=== PATIENT | female | born 1970 | race Caucasian/White ===

== ENCOUNTER 2017-04-02 11:36 | Outpatient (CLI) | payer BC ==
--- NOTE | ~2017-04-02 | HEMODYNAMI ---
PATIENT:LUIS ANGEL DOBBINS MEDICAL RECORD: [id number] : 66 LOCATION:[facility] ADMISSION DATE: 04/02/17 Generatedon:04/02/201714:36 Patient name: LUIS ANGEL DOBBINS Patient #: [id number] SSN: DO B: 1970 Date of study: 04/02/2017 Page: Of Hemodynamic Procedure Report Patient Data Patient Demographics Procedure consent was obtained First Name: LUIS ANGEL Gender: Female Last Name: MU : 1970 Middle Initial: MELANIE Age: 46 year(s) Patient #: [id number] Race: Unknown Additional ID: [id number] Contact details [address]: [address] [place] [address] State: [place] City: [place] Zip code: [address] Past Medical History Allergies Allergen Reaction Date Comments Reported Other allergy 04/02/2017 Succinylonoline Admission Admission Data Admission Date: 04/02/2017 Admission Time: 11:36 Lab Results Lab Result Date: 04/02/2017 Lab Result Time: 0:00 Biochemistry Name Units Result Min Max BUN mg/dl 11 --(-*--)-- 7 18 Creatinine mg/dl 0.8 --(-*--)-- 0.6 1.3 CBC Name Units Result Min Max Hemoglobin g/dl 13.6 --(*---)-- 13.5 17.5 Procedure Procedure Types Cath Procedure Diagnostic Procedure [facility] w/Coronaries Miscellaneous Procedures Moderate Sedation up to 30 minutes Procedure Description Procedure Date Procedure Date: 04/02/2017 Procedure Start Time: 14:20 Procedure End Time: 14:36 Procedure Staff Name Function Dev Cheema MD Performing Physician Loretta Robledo RT Scrub Lisette Howard RN Nurse Lynette Dorantes RT Monitor Joshua Carlson RT Monitor Indication Angina Procedure Data Cath Procedure Fluoroscopy Diagnostic fluoroscopy Total fluoroscopy Time: 2.1 time: 2.1 min min Diagnostic fluoroscopy Total fluoroscopy dose: 315 dose: 315 mGy mGy Contrast Material Contrast Material Type Amount (ml) Isovue 300 58 Entry Location Entry Primary Successful Side Size Upsize Upsize Entry Closure Succes sful Closure Location (Fr) 1 (Fr) 2 (Fr) Remarks Device Remarks Femoral Right 5 Fr Exoseal artery Estimated blood loss: 5 ml Diagnostic catheters Device Type Used For End Catheter Placement Cordis 5Fr JL 4.0 Left Coronary Catheter (MP) Angiography Cordis 5Fr 3DRC Catheter Procedure (MP) Cordis 5Fr Pigtail Procedure Catheter (MP) Procedure Complications No complications Procedure Medications Medication Administration Route Dosage Oxygen NC 2 l/min Lidocaine 2% added to field 20 Heparin Flush Bag added to field 2 bags (1000units/500ml NS) 0.9% NaCl I.V. 100 ml/hr Versed I.V. 2 mg Fentanyl I.V. 100 mcg Versed I.V. 1 mg Fentanyl I.V. 50 mcg Versed I.V. 1 mg Fentanyl I.V. 50 mcg Versed I.V. 1 mg Fentanyl I.V. 50 mcg Hemodynamics Rest HGB: 13.6 (g/dl) Heart Rate: 77 (bpm) Pressure Samples Time Site Value (mmHg) Purpose Heart Use Rate(bpm) 14:30 LV 161/27,53 EDP 91 Gradients Valve Time Site Site Mean SEP/DFP Peak To Heart Use 1 2 (mmHg) (sec/min) Peak Rate (mmHg) (bpm) Aortic 14:31 LV AO 100 Snapshots Pre Cath Intra NCS Post Cath Vital Signs Time Heart Resp SPO2 NIBP (mmHg) Rhythm Pain Sedation Rate (ipm) (%) Status Level (bpm) 14:02:11 73 19 100 126/83(102) NSR 0 (11) 10(A) , No pain 14:06:16 79 22 100 128/75(100) NSR 0 (11) 10(A) , No pain 14:10:20 77 16 98 129/89(102) NSR 0 (11) 10(A) , No pain 14:14:28 77 19 97 129/74(89) NSR 0 (11) 10(A) , No pain 14:18:33 80 17 95 136/82(100) NSR 0 (11) 10(A) , No pain 14:22:39 89 17 96 106/84(104) NSR 0 (11) 10(A) , No pain 14:27:28 92 17 96 137/86(92) NSR 0 (11) 9(A) , No pain 14:31:36 93 18 97 117/87(106) NSR 0 (11) 10(A) , No pain 14:35:40 92 29 97 115/75(92) NSR 0 (11) 10(A) , No pain Medications Time Medication Route Dose Verified Delivered Reason Notes Effe ctiveness by by 14:08:23 Oxygen NC 2 Dev Buffie used for l/min Deni Howard RN procedure 14:08:29 Lidocaine 2% added 20ml Dev Dev for local to vial Deni Cheema MD anesthetic field 14:08:47 Heparin Flush added 2 Dev Dev used for Bag to bags Deni Cheema MD procedure (1000units/500ml field NS) 14:08:56 0.9% NaCl I.V. 100 Dev Buffie Per ml/hr Deni Howard RN physician 14:14:04 Versed I.V. 2 mg Dev Buffie for Deni Howard RN sedation 14:14:10 Fentanyl I.V. 100 Dev Buffie for mcg Deni Howard RN sedation 14:18:18 Versed I.V. 1 mg Dev Buffie for Deni Howard RN sedation 14:18:22 Fentanyl I.V. 50 Dev Buffie for mcg Deni Howard RN sedation 14:22:52 Versed I.V. 1 mg Dev Buffie for Deni Howard RN sedation 14:22:55 Fentanyl I.V. 50 Dev Buffie for abeba Howard RN sedation 14:29:56 Versed I.V. 1 mg Dev Buffie for Deni Howard RN sedation 14:30:00 Fentanyl I.V. 50 Dev Buffie for mcg Deni Howard RN sedation Procedure Log Time Note 13:40:39 Lisette Howard RN sent for patient. Start room use. 13:53:16 Diagnostic Cath Status : Elective 13:53:33 Indication : Angina 13:53:45 Time tracking: Regular hours 13:53:49 Plan of Care:Hemodynamics will remain stable., Cardiac rhythm will remain stable., Comfort level will be maintained., Respiratory function will remain adequate., Patient/ family verbilizes understanding of procedure., Procedure tolerated without complication., Recovers from procedure without complications.. 13:53:56 Patient received from Pre/Post Procedure Room to CCL 2 Alert and oriented. Tansferred to table in Supine position. 13:54:07 Warm blankets applied, and maicol hugger turned on for patient comfort. 13:54:07 Correct patient and procedure confirmed by team. 13:54:10 Signed procedure consent form obtained from patient. 13:54:11 ECG and BP/O2 sat monitors applied to patient. 14:01:07 Vital chart was started 14:01:08 Baseline sample Acquired. 14:01:17 Rhythm: sinus rhythm 14:01:18 Full Disclosure recording started 14:02:52 H&P Date Dictated: 03/31/2017 Within 30 days and on chart., H&P Addendum completed by physician on day of procedure. (MUST COMPLETE FOR ALL OUTPATIENTS). 14:02:54 Pre-procedure instructions explained to patient. 14:02:54 Pre-op teaching completed and patient verbalized understanding. 14:02:55 Family in waiting room. 14:02:56 Patient NPO since Midnight. 14:03:37 Patient allergic to Other allergySuccinylonoline 14:03:39 Is the patient allergic to Iodine/contrast media? No. 14:03:40 Was the patient premedicated? No 14:03:46 Is patient on blood thinner?No 14:03:51 Patient diabetic? No. 14:03:55 Previous problem with sedation/anesthesia? No ? 14:03:57 Snore? Yes 14:03:58 Sleep apnea? No 14:04:01 Deviated septum? No 14:04:02 Opens mouth fully? Yes 14:04:03 Sticks out tongue? Yes 14:04:05 Airway obstruction? No ? 14:04:08 Dentures? No ? 14:04:13 Pre procedure: right dorsailis pedis pulse 1+ Palpable, but thready & weak; easily obliterated 14:04:16 Pre procedure: left dorsailis pedis pulse 1+ Palpable, but thready & weak; easily obliterated 14:04:18 Patient pain scale 0/10 ?. 14:04:35 IV patent on arrival in left forearm with 0.9% NaCl at [facility]. 14:08:23 Oxygen 2 l/min NC was administered by Lisette Howard RN; used for procedure; 14:08:29 Lidocaine 2% 20ml vial added to field was administered by Dev Cheema MD; for local anesthetic; 14:08:47 Heparin Flush Bag (1000units/500ml NS) 2 bags added to field was administered by Dev Cheema MD; used for procedure; 14:08:56 0.9% NaCl 100 ml/hr I.V. was administered by Lisette Howard RN; Per physician; 14:: Lab Result : BUN 11 mg/dl 14:: Lab Result : Creatinine 0.8 mg/dl 14::29 Lab Result : Hemoglobin 13.6 g/dl 14:10:33 Lab results completed and on chart. 14:10:36 Right groin area was prepped with chlora-prep and draped in sterile fashion 14:10:37 Alarms reviewed by R. N. 14:10:38 Sharps counted by scrub and verified by R.N. 14:10:39 Physician arrived 14:10:39 --------ALL STOP TIME OUT------ 14:10:40 Final Timeout: patient, procedure, and site verified with staff and physician. All members of the team are in agreement. 14:10:42 Right groin site verified by team. 14:10:44 Physical assessment completed. ASA score P 2 - A patient with mild systemic disease as per Dev Cheema MD. 14:10:48 Sedation plan: IV Moderate Sedation Versed, Fentanyl 14:13:32 Use device set Femoral Dx 14:13:33 Acist Syringe opened to sterile field. 14:13:33 Bag Decanter opened to sterile field. 14:13:34 Medline Cath Pack opened to sterile field. 14:13:34 Terumo 5Fr [place] Sheath opened to sterile field. 14:13:35 [place] 260cm J .035 wire opened to sterile field. 14:13:36 Acist Hand Control opened to sterile field. 14:13:36 Acist Manifold opened to sterile field. 14:13:37 Diagnostic Infinity 5Fr Multipack catheter opened to sterile field. 14:13:37 Tegaderm 4 x 4 opened to sterile field. 14:14:04 Versed 2 mg I.V. was administered by Lisette Howard RN; for sedation; 14:14:10 Fentanyl 100 mcg I.V. was administered by Buffie Howard RN; for sedation; 14:18:18 Versed 1 mg I.V. was administered by Lisette Howard RN; for sedation; 14:18:22 Fentanyl 50 mcg I.V. was administered by Lisette Howard RN; for sedation; 14:20:22 Procedure started. 14:20:40 Local anesthetic to right femoral artery with Lidocaine 2% by Dev Cheema MD.INITIAL ACCESS ONLY 14:22:43 A 5 Fr sheath was inserted into the Right Femoral artery 14:22:48 A Cordis 5Fr JL 4.0 Catheter (MP) was advanced over the wire and used for Left Coronary Angiography. 14:22:52 Versed 1 mg I.V. was administered by Lisette Howard RN; for sedation; 14:22:55 Fentanyl 50 mcg I.V. was administered by Lisette Howard RN; for sedation; 14:23:48 LCA angiography performed. 14:23:51 Injector settings: Ml/sec: 3, Volume: 6, 14:26:52 Catheter exchanged over wire. 14:26:57 A Cordis 5Fr 3DRC Catheter (MP) was advanced over the wire and used for Procedure. 14:27:48 RCA angiography performed. 14:27:52 Injector settings: Ml/sec: 3, Volume: 6, 14:28:31 Catheter exchanged over wire. 14:28:35 A Cordis 5Fr Pigtail Catheter (MP) was advanced over the wire and used for Procedure. 14:29:56 Versed 1 mg I.V. was administered by Lisette Howard RN; for sedation; 14:30:00 Fentanyl 50 mcg I.V. was administered by Lisette Howard RN; for sedation; 14:30:38 LV gram done using MARCUS 14:30:42 Injector settings: Ml/sec: 5, Volume: 15, 14:31:00 EF : 60 % 14:33:54 Catheter removed. 14:33:59 Cordis 5Fr Exoseal opened to sterile field. 14:34:05 Sheath removed intact; hemostasis achieved with Exoseal to the Right Femoral artery. 14:34:07 Procedure ended.(Physican Out) 14:35:15 Fluoroscopy time 02.10 minutes. 14:35:19 Flurop Dose total: 315 14:35:19 Fluoroscopy dose: 315 mGy 14:35:29 Contrast amount:Isovue 300 58ml. 14:35:30 Sharps counted by scrub and verified by R.N. 14:35:31 Insertion/operative site no bleeding no hematoma. 14:35:33 Post-op/insertion site Right Femoral artery dressed using a 4 x 4 and Tegaderm. 14:35:36 Post right femoral artery:stable, soft, clean and dry 14:35:37 Post Procedure Pulses reassessed and unchanged 14:35:39 Post-procedure physical assessment completed. ASA score P 2 - A patient with mild systemic disease as per Dev Cheema MD. 14:35:41 Post procedure rhythm: unchanged. 14:35:43 Estimated blood loss: 5 ml 14:35:44 Post procedure instruction explained to patient.Patient verbalizes understanding. 14:35:44 Patient needs reinforcement of post procedure teaching. 14:35:53 Procedure type changed to Cath procedure, Diagnostic procedure, LHC, LHC w/Coronaries, Miscellaneous Procedures, Moderate Sedation up to 30 minutes 14:36:12 Procedure and supply charges have been captured, reviewed, submitted and are correct. 14:36:14 Procedure Complication : No complications 14:36:17 Vital chart was stopped 14:36:18 See physician's report for complete and final results. 14:36:20 Report given to Pre/Post Procedure Room. 14:36:25 Patient transfered to Pre/Post Procedure Room with Stretcher. 14:36:28 Procedure ended. 14:36:28 Full Disclosure recording stopped 14:36:33 End room use (Document Last) Device Usage Item Name Manufacture Quantity Catalog Hospital Part Current Minimal Lo t# / Number Charge Number Stock Stock Serial# Code Acist Acist 1 [id number] 20 Syringe [employer] Bag Microtek 1 2002S [id number] 00004 575149 5 [employer] Medline Cardinal 1 [id number] 11210 [id number] 5 Cath Pack Health Terumo 5Fr Terumo 1 [id number] 920944 012004 372558 [address] Bassam 1 [id number] 359033 657108 596066 30 260cm J .035 wire Acist Hand Acist 1 26569 227668 488489 314586 5 Control [employer] Inc Acist Acist 1 17149 255647 916284 925533 5 Manifold [employer] Diagnostic Cardinal 1 [id number] [id number] 97781 162594 30 Infinity Health 5Fr Multipack catheter Tegaderm 4 3M 1 1626W 085980 615915 171204 5 x 4 Cordis 5Fr Cardinal 1 410338 5 JL 4.0 Health Catheter (MP) Cordis 5Fr Cardinal 1 448304 5 3DRC Health Catheter (MP) Cordis 5Fr Cardinal 1 093150 5 Pigtail Health Catheter (MP) Cordis 5Fr Cardinal 1 EX500 661752 125171 340521 10 [facility] Signature Audit [place] Stage Time Signature Unsigned Intra-Procedure 04/02/2017 Joshua Carlson 2:36:53 PM RT(R) Signatures Monitor : Lynette Dorantes RT Signature : Date : Time : Monitor : Joshua Carlson RT Signature : Date : Time : [place] [address] [place] [address]
[2017-04-02] MEDS ORDERED: KLONOPIN0.5 MG PO (11:56)
[2017-04-02] MEDS ORDERED: CYCLOBENZAPRINE10 MG PO (11:56)
[2017-04-02] MEDS ORDERED: PRINIVIL20 MG PO (11:57)
[2017-04-02] MEDS ORDERED: BAYER CHEWABLE81 MG PO (11:57)
[2017-04-02] MEDS ORDERED: LEXAPRO20 MG PO (11:57)
[2017-04-02] MEDS ORDERED: ESTRACE2 MG PO (11:58)
[2017-04-02] MEDS ORDERED: CLARITIN 10 MG10 MG PO (11:58)
[2017-04-02] MEDS ORDERED: TIROSINT88 MCG PO (11:59)
[2017-04-02 12:34] VITALS: BMI 24.5
[2017-04-02 12:41] LABS: BASOPHILS 0.1 % (0-2); EOSINOPHILS 1.3 % (0-7); HEMATOCRIT 39.8 % (36.0-48.0); HEMOGLOBIN 13.6 g/dL (12-16); IMMATURE GRANULOCYTES 0.3 % (0-5); LYMPHOCYTES 26.5 % (15-50); MCH 30.7 pg (26.0-34.0); MCHC 34.2 g/dL (31.0-37.0); MCV 89.8 fL (80.0-100.0); MEAN PLATELET VOLUME 9.7 fL (7.4-10.4); NEUTROPHILS 65.8 % (40-80); PLATELET COUNT 299 10x3/uL (130-400); RBC 4.43 10x6/uL (4.00-5.40); RDW 13.1 % (11.5-14.5)
[2017-04-02 12:50] LABS: CALC OSMOLALITY 273 mosm/kg (275-300); CALCIUM 8.6 mg/dL (8.5-10.1); CARBON DIOXIDE 25.8 mmol/L (21.0-32.0); CHLORIDE - SERUM 103 mmol/L (98-107); CREATININE - SERUM 0.8 mg/dL (0.6-1.3); GLUCOSE 86 mg/dL (74-106); POTASSIUM - SERUM 4.2 mmol/L (3.5-5.1); SODIUM 138 mmol/L (136-145); UREA NITROGEN 11 mg/dL (7-18); eGFR NON AFRICAN AMERICAN 81 mL/min (90-120)
== END 2017-04-02 16:31 | disposition home or self-care (01) ==
LOC: D.CATH 11:36
PROVIDERS: Internal Medicine Cardiovascular Disease
DX: I20.9 Angina pectoris, unspecified (principal); I10 Essential (primary) hypertension; Z82.49 Family history of ischemic heart disease and other diseases of the circulatory system; F17.200 Nicotine dependence, unspecified, uncomplicated; Z01.812 Encounter for preprocedural laboratory examination

== ENCOUNTER → 2017-12-24 08:18 | Outpatient (CLI) | payer BC ==
[~2017-12-24 08:18] MED LIST: BAYER CHEWABLE81 MG PO; CLARITIN 10 MG10 MG PO; CYCLOBENZAPRINE10 MG PO; ESTRACE2 MG PO; KLONOPIN0.5 MG PO; LEXAPRO20 MG PO; PRINIVIL20 MG PO; TIROSINT88 MCG PO
[2017-12-24 09:24] LABS: BASOPHILS 0.4 % (0-2); EOSINOPHILS 1.4 % (0-7); HEMATOCRIT 40.8 % (36.0-48.0); HEMOGLOBIN 13.9 g/dL (12-16); IMMATURE GRANULOCYTES 0.3 % (0-5); MCH 30.8 pg (26.0-34.0); MCHC 34.1 g/dL (31.0-37.0); MCV 90.5 fL (80.0-100.0); MEAN PLATELET VOLUME 9.3 fL (7.4-10.4); MONOCYTES 8.4 % (2-11); NEUTROPHILS 64.5 % (40-80); PLATELET COUNT 281 10x3/uL (130-400); RBC 4.51 10x6/uL (4.00-5.40); RDW 13.3 % (11.5-14.5)
[2017-12-24 10:31] LABS: HELICOBACTER PYLORI IGG NEGATIVE (NEGATIVE)
== END | disposition home or self-care (01) ==
LOC: D.CT 08:18
PROVIDERS: Family Medicine
DX: R10.9 Unspecified abdominal pain (principal)

== ENCOUNTER → 2018-05-22 11:02 | Outpatient (CLI) | payer BC | END | disposition home or self-care (01) | LOC: D.MRI 11:02 | DX: M54.12 Radiculopathy, cervical region (principal) ==

== ENCOUNTER → 2018-07-31 14:41 | Outpatient (CLI) | payer BC | END | disposition home or self-care (01) | LOC: D.RAD 14:41 | DX: R05 Cough (principal) ==